=== PATIENT | male | born 2000 | race Caucasian/White ===

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

== ENCOUNTER 2021-04-22 10:56 | Emergency (ER) | payer OTHER, SELFPAY ==
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
[2021-04-22 10:58] VITALS: BP 124/69; PULSE 98; RESP 20; TEMP 36.4; O2SAT 100
[2021-04-22 13:28] LABS: Basophils Absolute Auto 0.1 K/mm3 (0.0-0.1); Basophils Percent Auto 0.3 % (0.2-1.2); Eosinophils Percent Auto 0.2 % (0-4.4); Hemoglobin 15.5 g/dL (14.0-18.0); Immature Granulocyte Absolute 0.08 K/mm3 (0.00-0.031); Immature Granulocyte Percent A 0.4 % (0-0.5); Lymphocytes Absolute Auto 1.44 K/mm3 (0.9-3.2); Lymphocytes Percent Auto 7.9 % (18.3-44.2); Mean Corpuscular HGB Conc 32.3 g/dl (32-36); Mean Corpuscular Hemoglobin 27.5 pg (26-34); Mean Corpuscular Volume 85.3 fl (80-100); Monocytes Absolute Auto 0.8 K/mm3 (0.1-0.6); Monocytes Percent Auto 4.3 % (2.6-8.5); Neutrophils Absolute Auto 15.8 K/mm3 (1.3-6.7); Neutrophils Percent Auto 86.9 % (45.5-73.1); Platelet Count Result 351 k/mm3 (150-375); Red Blood Count 5.63 M/mm3 (4.6-6.20); Red Cell Distribution Width 12.9 % (11.5-14.5); White Blood Count 18.2 K/mm3 (4.5-10.0)
[2021-04-22 14:20] LABS: Add Urine Microscopic? YES; Appearance Urine Clear (Clear); Bilirubin Urine Negative (Negative); Blood Urine Negative (Negative); Color Urine Yellow (Yellow); Glucose Urine UA Negative (Negative); Ketones Urine Negative (Negative); Leukocyte Esterase Ur Negative LEU/UL (Negative); Nitrate Urine Negative (Negative); Protein Urine 1+ mg/dL (Negative); RBC Urine 0-2 /hpf (0-2); Specific Grav Ur 1.021 (1.001-1.035); WBC Urine 0-3 /hpf
[2021-04-22 14:45] LABS: Amphetamine Screen Urine Negative (Negative); Barbiturate Screen Urine Negative (Negative); Benzodiazepines Screen Urine Negative (Negative); Cannabinoid Screen Urine Negative (Negative); Cocaine Screen Urine Negative (Negative); Methadone Screen Urine Negative (Negative); Opiate Screen Urine Negative (Negative); Phencyclidine Screen Urine Negative (Negative)
[2021-04-22 15:05] VITALS: BP 136/75; PULSE 92; RESP 17; O2SAT 100
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
[2021-04-22] MEDS: LORazepam (*CRX) 1 MG TABLET PO (16:15)
--- NOTE | 2021-04-22 16:17 | PC.NURSE ---
unable to start iv site after 2 attempts. pt refuses to have another nurse attempt. provider notified.
--- NOTE | 2021-04-22 16:37 | PC.NURSE ---
pt signed form to have ct scans non contrast. pt continues to refuse iv
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
[2021-04-22 17:50] VITALS: BP 130/86; PULSE 88; RESP 17; O2SAT 100
[2021-04-22 20:24] LABS: Alanine Aminotransferase 17 U/L (4-50); Albumin Level 5.5 g/dL (3.7-5.6); Alkaline Phosphatase 110 U/L (58-237); Anion Gap 15 mmol/L (8-16); Aspartate Amino Transferase 38 U/L (17-59); Bilirubin,Total 0.8 mg/dL (0.2-1.3); Blood Urea Nitrogen 10 mg/dL (8-21); Calcium 10.9 mg/dL (8.9-10.7); Carbon Dioxide 24 mmol/L (22-30); Chloride 98 mmol/L (98-107); Estimated CRCL calculation 100 ml/min; Estimated Glomerular Filt Rate > 60; Glucose 42 mg/dL (65-110); Lipase 59 U/L (23-300); Potassium 4.3 mmol/L (3.4-5.0); Sodium 137 mmol/L (134-143)
--- NOTE | 2021-04-22 20:24 | PC.NURSE ---
lab just called with a critical glucose of 40's. lauren orellana notified. pt had already been discharged @ 1800
== END 2021-04-22 18:00 | disposition home or self-care (01) ==
PROVIDERS: Emergency Medicine Emergency Medical Services; Emergency Provider Emergency Medicine
DX: S09.90XA Unspecified injury of head, initial encounter (principal); S29.012A Strain of muscle and tendon of back wall of thorax, initial encounter; D72.829 Elevated white blood cell count, unspecified; R11.2 Nausea with vomiting, unspecified; V47.5XXA Car driver injured in collision with fixed or stationary object in traffic accident, initial encounter
CPT/HCPCS: 36415; 70450; 71045; 71250; 72125; 73562; 74176; 80053; 80307; 81001; 83690; 85025; 96374; 99284; A9270